=== PATIENT | female | born 1990 | race Caucasian/White ===

== ENCOUNTER 2019-05-22 12:19 | Emergency (ER) | payer OTHER ==
[~2019-05-22] VITALS: Ht 154.9 cm; Wt 83.5 kg
[2019-05-22] MEDS ORDERED: SYNTHROID50 MCG PO (12:35)
[2019-05-22] MEDS ORDERED: PAXIL10 MG PO (12:35)
[2019-05-22 13:01] LABS: ABSOLUTE BASOPHILS 0.1 thou/uL (0.0-0.2); ABSOLUTE LYMPHOCYTES 2.3 thou/uL (0.8-5.3); ABSOLUTE MONOCYTES 0.3 thou/uL (0.0-1.2); ABSOLUTE NEUTROPHILS 4.5 thou/uL (1.6-8.1); BASOPHILS 0.8 %; EOSINOPHILS 0.6 %; HEMATOCRIT 39.6 % (37.0-47.0); HEMOGLOBIN 12.9 gm/dL (12.0-15.0); LYMPHOCYTES 31.8 %; MCH 26.9 pg (26.0-34.0); MCHC 32.7 g/dL (28.0-37.0); MCV 82.3 fL (80.0-100.0); MONOCYTES 4.7 %; MPV 9.3 fl. (7.2-11.1); NUCLEATED RBCS 0 /100WBC; PLATELET COUNT* 319 thou/uL (150-400); POLYS 62.1 %; RDW-CV 14.3 % (10.5-14.5); WBC 7.3 thou/uL (4.0-11.0)
[2019-05-22] MEDS ORDERED: ANTIVERT25 MG PO (13:29)
[2019-05-22 13:38] VITALS: BP 110/72
== END 2019-05-22 13:39 | disposition left against medical advice (07) ==
LOC: M.ERS 12:19
PROVIDERS: Emergency Medicine Emergency Medical Services
DX: R42 Dizziness and giddiness (principal); E03.9 Hypothyroidism, unspecified